=== PATIENT | male | born 1970 | race African-American/Black ===

== ENCOUNTER 2017-11-06 17:12 | Emergency (ER) | payer OTHER ==
[~2017-11-06] VITALS: Ht 177.8 cm; Wt 127.0 kg
[2017-11-06 22:17] VITALS: BP 162/109
== END 2017-11-06 22:21 | disposition home or self-care (01) ==
LOC: ER 17:12
DX: I10 Essential (primary) hypertension (principal); R60.0 Localized edema
CPT/HCPCS: 93971; 99284

== ENCOUNTER 2018-03-10 21:05 | Emergency (ER) | payer MEDICAID, OTHER ==
[~2018-03-10] VITALS: Ht 180.3 cm; Wt 129.0 kg
[2018-03-10] MEDS ORDERED: KETOROLAC 30MG/ML VIAL IV STA (23:31)
[2018-03-10] MEDS ORDERED: SODIUM CHLORIDE 0.9% 1,000 ML IV ONE (23:31)
[2018-03-11] LABS: CHLORIDE 99 mEq/L (98-107)
[2018-03-11 00:03] LABS: BASOPHILS % 0.5 % (0.0-2.0); EOSINOPHILS % 1.2 % (0.0-5.0); HEMATOCRIT. 42.6 % (42.0-52.0); HEMOGLOBIN. 14.7 g/dL (14.0-18.0); LYMPHOCYTES % 22.5 % (20.0-50.0); MEAN CORPUSCULAR VOLUME 81.2 fL (80.0-94.0); MEAN PLATELET VOLUME 6.9 fl (7.4-10.4); MONOCYTES % 8.9 % (2.0-8.0); NEUTROPHILS % 66.9 % (40.0-76.0); PLATELET 306 x1000/uL (130-400); RED BLOOD CELL COUNT 5.25 mill/uL (4.7-6.1); RED CELL DISTRIBUTION WIDTH 13.7 % (11.6-14.6)
[2018-03-11] MEDS ORDERED: MAGNESIUM/ALUMINUM HYDROXIDE/SIMETHICONE 30ML UDC PO ONE (02:30)
[2018-03-11] MEDS ORDERED: SODIUM CHLORIDE 0.9% 500 ML IV ONE (02:30)
[2018-03-11 03:00] VITALS: BP 159/88
== END 2018-03-11 03:26 | disposition home or self-care (01) ==
LOC: ER 21:05
DX: K85.90 Acute pancreatitis without necrosis or infection, unspecified (principal); I10 Essential (primary) hypertension; Z98.890 Other specified postprocedural states
CPT/HCPCS: 36415; 74176; 80053; 83690; 85025; 96374; 99284; J1885; J7030; J7040